=== PATIENT | female | born 1990 | race African-American/Black ===

== ENCOUNTER 2020-05-23 17:47 | Emergency (ER) | payer SELFPAY ==
[~2020-05-23] VITALS: Ht 167.6 cm; Wt 68.5 kg
[2020-05-23 19:05] LABS: BASO % 0.2 % (0.0-1.0); EOS # 0.1 10^3/uL (0.0-0.5); EOS % 1.2 % (0.0-3.0); HEMATOCRIT 34.1 % (36.0-47.0); HEMOGLOBIN 9.9 g/dl (12.0-15.5); LYMPH # 2.7 10^3/uL (1.5-5.0); MEAN CORPUSCULAR HEMOGLOBIN 20.5 pg (27.0-33.0); MEAN CORPUSCULAR VOLUME 70.5 fl (80.0-96.0); MONO # 0.6 10^3/uL (0.0-0.8); MONO % 11.1 % (0.0-5.0); NEUTROPHILS # 2.3 10^3/uL (1.5-8.5); NEUTROPHILS % 40.3 % (36.0-66.0); PLATELET COUNT, AUTOMATED 318 10^3/uL (150-450); RED BLOOD COUNT 4.84 10^6/uL (4.00-5.40); WHITE BLOOD COUNT 5.7 10^3/uL (4.0-10.0)
[2020-05-23 19:24] LABS: ALBUMIN 3.4 GM/DL (3.2-5.2); ALT/SGPT 16 U/L (12-78); BILIRUBIN,DIRECT 0.2 MG/DL (0.0-0.2); BILIRUBIN,TOTAL 0.6 MG/DL (0.2-1.0); BLOOD UREA NITROGEN 14 MG/DL (7-18); CALCIUM LEVEL 9.9 MG/DL (8.5-10.1); CARBON DIOXIDE LEVEL 26 MEQ/L (21-32); CHLORIDE LEVEL 109 MEQ/L (98-107); CREATININE FOR GFR 0.91 MG/DL (0.55-1.30); GLOMERULAR FILTRATION RATE > 60.0 (>60); GLUCOSE, FASTING 89 MG/DL (70-100); LIPASE 49 U/L (73-393); POTASSIUM SERUM 4.1 MEQ/L (3.5-5.1); SODIUM LEVEL 140 MEQ/L (136-145); TOTAL PROTEIN 7.3 GM/DL (6.4-8.2)
[2020-05-23] MEDS ORDERED: metroNIDAZOLE (FLAGYL) 500MG TABLET PO ONE (20:15)
[2020-05-23] MEDS ORDERED: ONDANSETRON 4 MG ORAL DISINTEGRATING TAB PO ONE (20:30)
[2020-05-23] MEDS ORDERED: ONDANSETRON 4 MG ORAL DISINTEGRATING TAB As Ordered ONE (20:31)
[2020-05-23 20:35] LABS: CHLAMYDIA DNA AMPLIFICATION NEGATIVE (NEGATIVE); GC DNA AMPLIFICATION NEGATIVE (NEGATIVE)
[2020-05-23] MEDS ORDERED: ONDA4TAB6 PO (20:43)
[2020-05-23] MEDS ORDERED: METR0.7533 TOP (20:43)
[2020-05-23] MEDS ORDERED: FLAG500T PO (20:43)
[2020-05-23] MEDS ORDERED: FERR325T3 PO (20:45)
[2020-05-23 20:51] VITALS: BP 123/63
== END 2020-05-23 20:52 | disposition home or self-care (01) ==
LOC: M ED 17:47
DX: D58.2 Other hemoglobinopathies (principal); N76.0 Acute vaginitis; R42 Dizziness and giddiness
CPT/HCPCS: 36415; 80048; 80076; 81001; 83690; 85025; 87210; 87661; 99284; Q0162